=== PATIENT | female | born 2000 | race Caucasian/White ===

== ENCOUNTER 2022-03-03 11:47 | Emergency (ER) | payer OTHER ==
[2022-03-03 12:08] VITALS: BP 107/60; PULSE 112; RESP 20; TEMP 98.3; BMI 18.0
[2022-03-03] MEDS ORDERED: FAMOTIDINE 20 MG/50 ML IVPB 20 MG/50 ML MG IVPB ONE ×2 (12:51→13:19)
[2022-03-03] MEDS ORDERED: SODIUM CHLORIDE 1,000 ML IV STA (12:51)
[2022-03-03] MEDS ORDERED: ONDANSETRON 4 MG/2 ML VIAL IVPUSH ONE (12:52)
[2022-03-03] MEDS ORDERED: MAG HYDROX/AL HYDROX/SIMETH 30 ML UNIT-DOSE CUP PO ONE (12:59)
[2022-03-03] MEDS ORDERED: ONDANSETRON 4 MG/2 ML VIAL ONE (13:19)
[2022-03-03] MEDS ORDERED: MAG HYDROX/AL HYDROX/SIMETH 30 ML UNIT-DOSE CUP ONE (13:19)
[2022-03-03 13:58] LABS: BASO % 0.3 % (0-2.0); HEMATOCRIT 42.2 % (32.4-45.2); HEMOGLOBIN 14.1 GM/dL (10.7-15.3); LYMPH % 9.5 % (8-40); MCHC 33.3 g/dl (32.0-36.0); MEAN CELL VOLUME 87.1 fl (80-96); MONO % 2.7 % (3.8-10.2); NEUT % 87.5 % (42.8-82.8); PLATELET COUNT 178 10^3/uL (134-434); RBC 4.84 M/mm3 (3.60-5.2); RDW 13.3 % (11.6-15.6); WHITE BLOOD COUNT 8.2 K/mm3 (4.0-10.0)
[2022-03-03 14:21] LABS: ALBUMIN 3.8 g/dl (3.4-5.0); BLOOD UREA NITROGEN 10.4 mg/dL (7-18); CALCIUM 9.1 mg/dL (8.5-10.1)
[2022-03-03 14:24] LABS: CREATININE 0.7 mg/dL (0.55-1.3)
[2022-03-03 14:25] LABS: BILIRUBIN,TOTAL 0.6 mg/dL (0.2-1)
[2022-03-03 14:26] LABS: TOT PROT 8.3 g/dl (6.4-8.2)
[2022-03-03 15:45] LABS: EPI CELLS >36 /uL (0-25.1); HYALINE CASTS 4 /uL (0-3.1); PH,URINE 5.5 (5.0-8.0); URINE APPEARANCE CLOUDY; URINE BACTERIA 1056 /uL (0-1359); URINE BILIRUBIN 1+ (NEGATIVE); URINE COLOR DK YELLOW; URINE GLUCOSE (UA) NEGATIVE (NEGATIVE); URINE KETONE 1+ (NEGATIVE); URINE LEUK ESTERASE NEGATIVE (NEGATIVE); URINE NITRITE NEGATIVE (NEGATIVE); URINE PROTEIN 1+ (NEGATIVE); URINE WBC 24 /uL (0-25.8)
[2022-03-03 15:53] LABS: URINE RBC 30 /uL (0-23.9)
== END 2022-03-03 16:16 | disposition home or self-care (01) ==
LOC: JER 11:47
PROC: 3E033GC Introduction of Other Therapeutic Substance into Peripheral Vein, Percutaneous Approach (ICD-10-PCS; principal; 2022-03-03)
DX: K29.00 Acute gastritis without bleeding (principal)
CPT/HCPCS: 0241U-QW; 36415; 76705-TC; 80053; 81003; 82150; 83690; 84703; 85025; 87086; 99284-25

== ENCOUNTER 2022-05-04 05:30 | Day surgery (SDC) | payer OTHER ==
[2022-05-03 08:04] VITALS: BMI 18.0
[2022-05-04 10:20] VITALS: TEMP 97
[2022-05-04 11:43] VITALS: BP 105/66; PULSE 80; RESP 19
== END 2022-05-04 11:05 | disposition home or self-care (01) ==
LOC: JASU-ENDO 05:30
PROVIDERS: ATTEND Student in an Organized Health Care Education/Training Program
PROC: 0DB78ZX Excision of Stomach, Pylorus, Via Natural or Artificial Opening Endoscopic, Diagnostic (ICD-10-PCS; 2022-05-04)
PROC: 0DB68ZX Excision of Stomach, Via Natural or Artificial Opening Endoscopic, Diagnostic (ICD-10-PCS; 2022-05-04)
PROC: 0DB48ZX Excision of Esophagogastric Junction, Via Natural or Artificial Opening Endoscopic, Diagnostic (ICD-10-PCS; principal; 2022-05-04 10:00)
DX: K21.00 Gastro-esophageal reflux disease with esophagitis, without bleeding (principal); K44.9 Diaphragmatic hernia without obstruction or gangrene; K29.50 Unspecified chronic gastritis without bleeding
CPT/HCPCS: 81025; 88305-TC; 88342-TC